=== PATIENT | male | born 1995 | race American Indian/Alaskan Native ===

== ENCOUNTER 2017-01-06 12:26 | Emergency (ER) | payer OTHER ==
[2017-01-06 12:56] VITALS: BP 116/78; PULSE 80; RESP 16; TEMP 98; O2SAT 99
[2017-01-06] MEDS ORDERED: Albuterol 0.083% Inhal Sol (2.5 mg/3 mL) UD ONE (13:21)
[2017-01-06] MEDS: Albuterol-Ipratrop 3 mg / 0.5 (3 ml) UD IH SCH ×2 (13:22→14:09)
--- NOTE | 2017-01-06 13:49 | C.PDOC ---
History Of Present Illness 22 yr old male with PMHx of seasonal allergies and asthma, presents to the ER with complaints of congestion, cough and itchy eyes with tearing for the past 3 days. Patient denies fever, chills, vision changes, chest pain, SOB, headache or rash. Time Seen by Provider: 01/06/17 12:50 Chief Complaint (Nursing): Cough, Cold, Congestion History Per: Patient History/Exam Limitations: no limitations Onset/Duration Of Symptoms: Days (3) Past Medical History Reviewed: Historical Data, Nursing Documentation, Vital Signs Vital Signs: Last Vital Signs Temp 98 F 01/06/17 12:46 Pulse 80 01/06/17 12:46 Resp 16 01/06/17 12:46 BP 116/78 01/06/17 12:46 Pulse Ox 99 01/06/17 16:07 - Medical History PMH: Asthma Family History: States: No Known Family Hx - Social History Hx Alcohol Use: No Hx Substance Use: No Review Of Systems Except As Marked, All Systems Reviewed And Found Negative. Constitutional: Negative for: Fever, Chills Eyes: Positive for: Other (Watery, itchy eyes). Negative for: Vision Change ENT: Positive for: Nose Congestion Cardiovascular: Negative for: Chest Pain Respiratory: Positive for: Cough. Negative for: Shortness of Breath Skin: Negative for: Rash Neurological: Negative for: Headache Physical Exam - Physical Exam Appears: Well, Non-toxic, No Acute Distress Skin: Normal Color, Warm, Dry, No Rash Head: Atraumatic, Normacephalic Eye(s): bilateral: PERRL, EOMI, Other (Watery eyes ) Nose: Discharge (Clear ), No Deformity, No Tenderness Throat: Normal, No Erythema, No Exudate, No Drooling Neck: Normal, Normal ROM, Supple Chest: Symmetrical, No Tenderness Cardiovascular: Rhythm Regular, No Murmur Respiratory: No Rales, No Rhonchi, Wheezing (Bilateral ) Gastrointestinal/Abdominal: Normal Exam, Soft, No Tenderness, No Guarding, No Rebound Extremity: Normal ROM, No Swelling Neurological/Psych: Oriented x3, Normal Speech, Normal Motor Gait: Steady ED Course And Treatment O2 Sat by Pulse Oximetry: 99 - Other Rad CXR X-Ray: Viewed By Me, Read By Radiologist Interpretation: HISTORY: cough/wheezing. COMPARISON: No prior. TECHNIQUE: Chest PA and lateral. FINDINGS: LUNGS: No active pulmonary disease. PLEURA: No significant pleural effusion identified. No pneumothorax apparent. CARDIOVASCULAR: Normal. OSSEOUS STRUCTURES: No significant abnormalities. VISUALIZED UPPER ABDOMEN: Normal. OTHER FINDINGS: None. IMPRESSION: Dense of pneumonia. Called radiologist, he sts it was typo Impression should be "no evidence of Pneumonia" Progress Note: Patient is treated with Albuterol and prednisone for the congestion and cough. On reevaluation, patient reports improvmenets of symptoms. Patient is resting comfortably, denies any distress. Patient to be discharged home with follow up instructions at the clinic and prescriptions. Medical Decision Making Medical Decision Making: PLAN: * CXR * Albuterol IH * Prednisone PO Disposition - Disposition Disposition: HOME/ ROUTINE Disposition Time: 13:46 Condition: STABLE Additional Instructions: Follow up in Clinic within 1-2 days. Return to ED if feel worse. 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 - Scribe Statement The provider has reviewed the documentation as recorded by the Scribe Emi Thomson All medical record entries made by the Scribe were at my direction and personally dictated by me. I have reviewed the chart and agree that the record accurately reflects my personal performance of the history, physical exam, medical decision making, and the department course for this patient. I have also personally directed, reviewed, and agree with the discharge instructions and disposition.
--- NOTE | 2017-01-06 14:00 | RAD ---
HISTORY: cough/wheezing COMPARISON: No prior. TECHNIQUE: Chest PA and lateral FINDINGS: LUNGS: No active pulmonary disease. PLEURA: No significant pleural effusion identified. No pneumothorax apparent. CARDIOVASCULAR: Normal. OSSEOUS STRUCTURES: No significant abnormalities. VISUALIZED UPPER ABDOMEN: Normal. OTHER FINDINGS: None. IMPRESSION: Dense of pneumonia
--- NOTE | 2017-03-02 21:18 | CARD ---
APPROVED REPORT EKG Measurement Heart [id number] <Conclusion> Normal sinus rhythm Normal ECG
== END 2017-01-06 14:10 | disposition home or self-care (01) ==
LOC: C.ER 12:26
DX: J45.901 Unspecified asthma with (acute) exacerbation (principal)